=== PATIENT | female | born 1975 | race Caucasian/White ===

== ENCOUNTER 2019-04-19 12:01 | Emergency (ER) | payer OTHER ==
[~2019-04-19] VITALS: Ht 157.5 cm; Wt 81.7 kg
[~2019-04-19 12:01] MED LIST: BENTYL 10 MG CA10 M1 PO; BENTYL 10 MG CA10 MG; CELEXA 20 MG TA20 MG PO; HYDROCODON-ACE1 EAC7 PO; HYDROXYZINE HCL25 M1 PO; MUCINEX TA600 MG/TA2 PO; NORCO 5-325 TA1 EAC1 PO; NORCO 5-325 TA1 EACH PO; PROMETH-CODEIN 65 ML PO; VENLAFAXIN75 MG/1 T2 PO; ZOFRAN4 MG PO; ZPAK PO
[2019-04-19 12:40] LABS: ABSOLUTE BASOPHILS 0.1 thou/uL (0.0-0.2); ABSOLUTE EOSINOPHILS 0.1 thou/uL (0.0-0.7); ABSOLUTE LYMPHOCYTES 2.5 thou/uL (0.8-5.3); ABSOLUTE MONOCYTES 0.5 thou/uL (0.0-1.2); ABSOLUTE NEUTROPHILS 3.2 thou/uL (1.6-8.1); BASOPHILS 1.2 %; EOSINOPHILS 1.2 %; HEMATOCRIT 37.6 % (37.0-47.0); HEMOGLOBIN 13.2 gm/dL (12.0-15.0); LYMPHOCYTES 39.6 %; MCH 32.6 pg (26.0-34.0); MCHC 35.1 g/dL (28.0-37.0); MCV 92.9 fL (80.0-100.0); MPV 7.4 fl. (7.2-11.1); NUCLEATED RBCS 0 /100WBC; PLATELET COUNT* 265 thou/uL (150-400); RBC 4.04 mil/uL (4.20-5.00); RDW-CV 13.5 % (10.5-14.5); WBC 6.4 thou/uL (4.0-11.0)
[2019-04-19 12:53] LABS: CALCIUM 8.7 mg/dL (8.5-10.1); CREATININE 0.9 mg/dL (0.6-1.3); POTASSIUM 3.8 mmol/L (3.5-5.1)
[2019-04-19 12:57] LABS: ALBUMIN 3.7 g/dL (3.4-5.0); TOTAL BILIRUBIN 0.2 mg/dL (<0.1-1.0); TOTAL PROTEIN 6.7 g/dL (6.4-8.2)
[2019-04-19] MEDS ORDERED: NORCO 5-325 TA1 EAC1 PO (15:22)
[2019-04-19] MEDS ORDERED: ZOFRAN ODT4 MG DISSOLVE (15:22)
[2019-04-19 15:57] VITALS: BP 125/84
--- NOTE | 2019-04-19 17:02 | EKG ---
[place] [address] ELECTROCARDIOGRAM REPORT Name: MINI FRANKLIN Room: [facility]#: [id number] Admission: 04/19/19 Attend Phys: Discharge: 04/19/19 Date of : 79 Report #: [id number] THIS REPORT FOR: //name// [facility] ED Test Date: 2019-04-19 Test Time: 12:48:40 Pat Name: MINI FRANKLIN Department: Room: Gender: F [employer]: : 1975 Requested By: Michael Hutton Order Number: [id number] MD: Maurizio Lambert Measurements Intervals [place] Rate: 71 P: 28 NE: 152 QRS: 29 QRSD: 91 T: 49 QT: 422 QTc: 459 Interpretive Statements Sinus rhythm No previous ECG available for comparison Electronically Signed On 04-19-2019 17:01:55 [employer] by Maurizio Lambert [email or web address] <ELECTRONICALLY SIGNED> By: Maurizio Lambert MD, [facility] 04/19/19 1701 1248 1248 Maurizio Lambert MD, FACC /EPI
== END 2019-04-19 15:58 | disposition home or self-care (01) ==
LOC: M.ERS 12:01
PROVIDERS: Emergency Medicine Emergency Medical Services
DX: R10.10 Upper abdominal pain, unspecified (principal); R11.2 Nausea with vomiting, unspecified; R19.7 Diarrhea, unspecified; F17.210 Nicotine dependence, cigarettes, uncomplicated; Z88.0 Allergy status to penicillin; Z88.1 Allergy status to other antibiotic agents; Z90.710 Acquired absence of both cervix and uterus